=== PATIENT | male | born 1990 | race Caucasian/White ===

== ENCOUNTER 2020-05-06 19:41 | Emergency (ER) | payer MEDICAID, SELFPAY ==
[2020-05-06 19:41] VITALS: BP 156/104; PULSE 83; RESP 16; TEMP 36.1; O2SAT 97; BMI 34.2
--- NOTE | 2020-05-06 20:44 | ED.DCSUM_ITS ---
- ER Visit Summary Date of Service: 05/06/20 Chief Complaint: Eye redness History of Present Illness: The patient is a 29 M presenting with redness to both eyes. This started on Friday. He states he woke up with crusting in both eyes. He denies chemical exposure or foreign body. Denies grinding metal. He does not wear contacts or glasses. Denies fever. He went to urgent care on and started on polymyxin drops. He feels the symptoms have worsened since that time. He denies vision changes. Denies other complaints. Physical Examination: Vitals are stable. Patient is afebrile. Alert no acute distress. HEENT exam bilateral conjunctival injection, pupils equal round reactive to light. No pain with extraocular movements. Neck is supple. Lungs are clear and equal bilaterally. Heart is regular rate and rhythm. Extremities are unremarkable. Skin is warm and dry. No focal neurologic deficit. Remainder of exam is unremarkable. Emergency Department Course and Treatment: Visual acuity 20/30 OD, 20/25 OS. Patient is switched to erythromycin ophthalmic ointment. He will follow-up with Dr. Murphy. Advised return to the ED for worsening complaints. Disposition: Discharge home Impression: Conjunctivitis This note was generated with [employer] dictation software. It may contain incorrect words, spelling, and punctuation that were not noted in review of the chart prior to signing ED Disposition - Plan for ED Patient: Instructions: ED Conjunctivitis, Viral Referrals: Scott Murphy MD [STAFF PHYSICIAN] - Jacinto Lopez MD [Primary Care Provider] -
--- NOTE | 2020-05-06 20:44 | ED.DEP ---
ED Disposition - Plan for ED Patient: Instructions: ED Conjunctivitis, Viral Referrals: Jacinto Lopez MD [Primary Care Provider] - Scott Murphy MD [STAFF PHYSICIAN] -
[2020-05-06] MEDS: Erythromycin Base 1 OPTH.TUBE 1 APPLIC EACH EYE (20:59)
[2020-05-06 21:04] VITALS: RESP 18
== END 2020-05-06 21:05 | disposition home or self-care (01) ==
LOC: ED 20:35
PROVIDERS: Emergency Provider Emergency Medicine; PCP Family Medicine
DX: H10.9 Unspecified conjunctivitis (principal)
CPT/HCPCS: 99283

== ENCOUNTER 2021-05-01 15:22 | Emergency (ER) | payer MEDICAID, SELFPAY ==
[2021-05-01 15:23] VITALS: BP 150/89; PULSE 110; RESP 16; TEMP 36.3; O2SAT 95; BMI 35.4
--- NOTE | 2021-05-01 16:14 | RAD_ITS ---
STUDY: X-RAY - RIGHT SHOULDER REASON FOR EXAM: Male, 30 years old. FALL YESTERDAY, PAIN JUST OVER SCAPULAR AREA TECHNIQUE: For view(s) of the shoulder. COMPARISON: None. FINDINGS: Normal glenohumeral articulation. Normal acromioclavicular joint. Normal acromion. Normal humeral head and visualized proximal humerus. The soft tissue structures are unremarkable. There is no demonstrated fracture. Normal visualized pulmonary apex. RAD/Shoulder min 2 Views IMPRESSION: Normal x-ray examination of the shoulder. Electronically Signed: Russell Mensah MD at 17:06 EST ,
--- NOTE | 2021-05-01 16:14 | RAD_ITS ---
STUDY: X-RAY - UNILATERAL RIBS ( RIGHT ) WITH CHEST REASON FOR EXAM: Male, 30 years old. FALL YESTERDAY, PAIN JUST OVER SCAPULAR AREA TECHNIQUE - RIBS: 4 view(s) of the ribs. TECHNIQUE - CHEST: Single PA view of the chest. COMPARISON: None. FINDINGS - RIBS: Normal visualized ribs without a demonstrated fracture. FINDINGS - CHEST: The lungs are clear and expanded. There is no demonstrated pleural abnormality. Normal size heart. Normal mediastinum and conrad. Normal visualized pulmonary arteries. Normal visualized aortic arch and descending thoracic aorta. Normal visualized thoracic spine. Normal visualized ribs, clavicles, and shoulders. There is no demonstrated abnormality of the visualized soft tissue structures of the upper abdomen. RAD/Ribs Uni Min 3V w/PA Chest IMPRESSION: RIBS: Normal x-ray examination of the ribs. CHEST: Normal x-ray examination of the chest. Electronically Signed: Russell Mensah MD at 17:05 EST ,
--- NOTE | 2021-05-01 16:15 | EDS_ITS ---
HPI History of Present Illness Chief Complaint: Fall Detail of Chief Complaint: Fall with injury to right upper back and shoulder Informant: patient Narrative Narrative: Patient presents to the emergency department after sustaining a fall last evening around 10 PM. Patient states he slipped on the ice and fell onto his right side injuring his shoulder and upper back. Did not strike his head no loss of consciousness. He denies any shortness of breath. He denies neck pain. He denies abdominal pain. Patient is left-hand dominant. PFSH PFSH Medical History no medical history Home Medications polymyxin B sulf-trimethoprim 10 ml OP TID 05/06/20 [History Last Taken Unknown] Allergy/AdvReac Type Severity Reaction Status Date / Time No Known Allergies Allergy Verified 05/01/21 15:23 Surgical History no surgical history Social History Smoking Status: Never smoker ROS ROS ED Constitutional Constitutional ED: Reports systems reviewed and no addt'l complaints, except as documented; Denies body ache(s), change in weight or chills Eyes Eyes: Denies acute decrease in peripheral vision, change in vision, double vision or loss of vision ENT ENT ED: Reports none; Denies ear pain, lip swelling, loss taste/smell, neck pain, otalgia or sore throat Cardiovascular Cardiovascular: Reports none; Denies abdominal pain, chest pain with activity, leg edema, lightheadedness, palpitations, rapid heart rate or syncope Respiratory/Chest Respiratory/Chest: Reports none; Denies change in mental status, dry cough, dyspnea, hemoptysis, shortness of breath at rest or shortness of breath with exertion Gastrointestinal Gastrointestinal: Reports none; Denies abdominal pain, change in stool character, diarrhea, hematemesis, hematochezia, melena, rectal bleeding or vomi ting Genitourinary Genitourinary ED: Reports none; Denies abdominal discomfort, anuria, dysuria, genital pain or polyuria Musculoskeletal Musculoskeletal: Reports none and other Details: Right shoulder injury/back pain ; Denies arthralgias, back pain, difficulty walking, extremity pain, muscle weakness or myalgias Integumentary Reports none; Denies abscess or rash Neurologic Neurologic: Reports none; Denies abnormal gait, confusion, focal weakness, frequent falls, headache(s), loss of vision, numbness, paresthesias, radicular pain, vertigo or weakness Psychiatric Psychiatric: Reports systems reviewed and no addt'l complaints, except as documented and none; Denies behavioral changes, confusion, difficulty c oncentrating, hallucinations, suicidal ideation, tactile hallucinations or visual hallucinations Endocrine Endocrinology: Denies none, cold intolerance, excessive sweating, fatigue or heat intolerance Hematologic/Lymphatic Hematologic/Lymphatic: Reports none; Denies anemia, easy bleeding or easy bruising Allergic/Immunologic Allergic/Immunologic ED: Denies as per HPI, none, lip swelling, mouth swelling, throat swelling, tongue swelling or hives EXAM Physical Exam Const Vital Signs: 05/01/21 15:23 05/01/21 16:17 Temperature 97.3 F L Temperature Source Temporal Pulse Rate 110 H Respiratory Rate 16 Respiratory Effort Normal Non-Labored Blood Pressure 150/89 H Blood Pressure Mean 109 Pulse Ox 95 Oxygen Delivery Method Room Air Positive well nourished and well developed General Appearance ED: well developed and NAD HEENT Reports TM's clear and moist mucous membranes normocephalic and atraumatic; Negative for trauma or tenderness Tympanic Membrane ED: Yes TM's clear Eyes PERRL and EOMs intact bilaterally General Eye ED: Negative for pale conjunctiva or scleral icterus Neck no lymphadenopathy, supple and no JVD General: Negative for tenderness Chest Wall inspection of chest normal and palpation of chest normal Chest: Negative for tenderness Resp normal respiratory effort and clear to auscultation bilaterally Effort and Inspection: Negative for respiratory distress or pain with movement Auscultation: Negative for rhonchi, wheezes or diminished lung sounds Cardio regular rate, regular rhythm, S1 normal heart sound, S2 normal heart sound and no murmurs Peripheral Pulses: pulses 2+ throughout GI normal to inspection, nondistended, normoactive bowel sounds, soft to palpation, non-tender, non-distended and no masses Back/Spine no CVA tenderness and no thoracic nor lumbar tenderness Extremity Extremity Narrative: Evaluation of the right shoulder-patient has no obvious deformity or sulcus sign. He has normal range of motion and good strength the glenohumeral joint. Most of his pain is posterior aspect of the shoulder and upper ribs. Minimal discomfort over the scapula. He is neurovascular intact distally. General Extremety ED: Negative for edema General Extremity: Negative for edema Neuro oriented x3, CN's II-XII intact bilaterally, no sensory deficits noted and gait normal Sensorium / Orientation: awake, alert, oriented to person, oriented to place and oriented to time Motor Exam: strength 5/5 throughout and strength abnormal Psych mental status grossly normal Skin no rashes or lesions noted and no wounds MDM MDM MDM Narrative Medical decision making narrative: Patient x-rays of right shoulder and right ribs were unremarkable as interpreted by myself and the radiologist. At this point he does only thing for pain just wants Motrin or Tylenol for discomfort. Patient also would like the COVID-19 vaccine. Radiography Diagnostic Testing: Clinical Impression(s) from Imaging Studies Ribs w/Chest X-Ray 05/01/21 16:14 IMPRESSION: RIBS: Normal x-ray examination of the ribs. CHEST: Normal x-ray examination of the chest. Electronically Signed: Russell Mensah MD at 17:05 EST , Shoulder X-Ray 05/01/21 16:14 IMPRESSION: Normal x-ray examination of the shoulder. Electronically Signed: Russell Mensah MD at 17:06 EST , Discharge Plan Triage Chief Complaint: Fall ED Provider: Osiris Sanford Dx/Rx/DC Orders Clinical Impression: Fall, Contusion of right scapula, Back contusion Instructions: ED Back Contusion, ED Mechanical Fall Prescriptions: No Action polymyxin B sulf-trimethoprim 10 ML drops 10 ml OP TID RF: 0 Primary Care Provider: Care Physician,No Primary Referrals: Misha Jacobson MD [NON-STAFF] - 5-7 Days Care Physician,No Primary [Primary Care Provider] - Disposition Disposition: Home, Self Care
[2021-05-01] MEDS: COVID-19 VACC, MRNA(PFIZER)/PF 30 MCG/0.3 ML SYRINGE IM (18:23)
== END 2021-05-01 18:43 | disposition home or self-care (01) ==
PROVIDERS: Emergency Provider Emergency Medicine; Visit Provider Emergency Medicine
DX: S20.221A Contusion of right back wall of thorax, initial encounter (principal); W00.9XXA Unspecified fall due to ice and snow, initial encounter; Y93.9 Activity, unspecified; Y99.9 Unspecified external cause status; S40.011A Contusion of right shoulder, initial encounter; Y92.9 Unspecified place or not applicable; Z23 Encounter for immunization
CPT/HCPCS: 71101; 73030; 91300; 99282

== ENCOUNTER 2021-11-06 07:18 | Emergency (ER) | payer MEDICAID, SELFPAY ==
[2021-11-06 07:19] VITALS: BP 156/87; PULSE 122; RESP 22; TEMP 38.4; O2SAT 95; BMI 36.7
[2021-11-06 07:28] VITALS: O2SAT 98
--- NOTE | 2021-11-06 07:35 | EDS_ITS ---
HPI History of Present Illness Chief Complaint: Shortness of Breath Informant: patient Narrative Narrative: 31-year-old male presenting to the emergency department for the evaluation of fever. Patient states for the past 4 days he has had a fever. He was taking Tylenol and yesterday his grandparents gave him aspirin. He notes that he vomits with pop. No diarrhea sore throat or headache. He notes upper back/neck discomfort that is worse with movement. No rashes. No rhinorrhea or cough. PFSH PFSH Home Medications NK 11/06/21 [History Last Taken Unknown] Allergy/AdvReac Type Severity Reaction Status Date / Time No Known Allergies Allergy Verified 11/06/21 07:19 Social History (Updated 11/06/21 @ 07:[address] Alex Fraire, DO) Smoking Status: Never smoker substance use type: does not use ROS ROS ED Constitutional Constitutional ED: Reports chills and fever(s); Denies weight loss Eyes Eyes: Denies change in vision or diplopia ENT ENT ED: Denies ear pain, rhinorrhea or sore throat Cardiovascular Cardiovascular: Denies chest pain, orthopnea, palpitations or racing heartbeat Respiratory/Chest Respiratory/Chest: Denies cough, dyspnea or orthopnea Gastrointestinal Gastrointestinal: Denies abdominal pain, diarrhea, nausea or vomiting Genitourinary Genitourinary ED: Denies dysuria, hematuria or urinary frequency Musculoskeletal Musculoskeletal: Reports back pain and neck pain; Denies arthralgias or myalgias Integumentary Denies abscess or rash Neurologic Neurologic: Denies headache(s) or weakness Psychiatric Psychiatric: Denies anxiety, depression, suicidal ideation or suicidal thoughts Endocrine Endocrinology: Denies polydipsia, polyphagia or polyuria Allergic/Immunologic Allergic/Immunologic ED: Denies mouth swelling, tongue swelling or urticaria EXAM Physical Exam Const Vital Signs: 11/06/21 07:19 11/06/21 07:28 Temperature 101.1 F H Temperature Source Temporal Pulse Rate 122 H Respiratory Rate 22 H Respiratory Effort Normal Non-Labored Respiratory Depth Normal Respiratory Pattern Normal Blood Pressure 156/87 H Blood Pressure Mean 110 Pulse Ox 95 Oxygen Delivery Method Room Air Room Air Positive well nourished, well developed and obese General Appearance ED: well developed Nutritional Appearance: obese HEENT Reports normocephalic, head/scalp atraumatic and moist mucous membranes Eyes PERRL and EOMs intact bilaterally Neck no lymphadenopathy, supple and no JVD Resp normal respiratory effort and clear to auscultation bilaterally Cardio regular rate, regular rhythm and no murmurs Rate: tachycardic GI normal to inspection, nondistended, normoactive bowel sounds and non-tender Palpation: soft Back/Spine no CVA tenderness and normal ROM Extremity normal to inspection General Extremety ED: Negative for edema General Extremity: Negative for edema Neuro oriented x3 and CN's II-XII intact bilaterally Sensorium / Orientation: alert Motor Exam: strength 5/5 throughout Psych mental status grossly normal Mood & Affect: Negative for depressed or tearful Skin no rashes or lesions noted and no wounds MDM MDM MDM Narrative Medical decision making narrative: Received Motrin and his fever broke. White count 7.2. Creatinine 1.31. glucose of 141. My interpretation of the chest x-ray is no acute process. COVID swab was negative. Patient clinically appears well. His biggest complaint is continued fever. I think the patient most likely has a viral syndrome given the 4 days of the illness and really no other specific complaints. At this point he has isolated paraspinal musculature tenderness in the upper back cervical region. I do not suspect underlying infection. He is got no meningeal signs. He has no headache. At this point patient will be discharged home recommend isolation until fever has have resolved. Return if worsening or any concerns Lab Data Attestation: I reviewed the patient's lab results. Labs: Laboratory Results - last 24 hr 11/06/21 11/06/21 07:39 07:39 WBC 7.2 RBC 6.07 Hgb 15.4 Hct 47.6 MCV 78.4 L MCH 25.4 L MCHC 32.4 RDW Std Deviation 42.2 RDW Coeff of Alexus 15.2 H Plt Count 212 MPV 9.7 Immature Gran % (Auto) 0.400 Neut % (Auto) 53.6 Lymph % (Auto) 33.1 [place] % (Auto) 10.1 H Eos % (Auto) 2.0 Baso % (Auto) 0.8 Absolute Neuts (auto) 3.8 Absolute Lymphs (auto) 2.37 Nucleated RBC % 0 Atypical Lymphocytes 1+ Sodium 136 Potassium 4.3 Chloride 102 Carbon Dioxide 28.0 Anion Gap 6 BUN 12 Creatinine 1.31 H Estim Creat Clear Calc 82.45 Est GFR (MDRD) Af Amer 83 Est GFR (MDRD) Non-Af 68 BUN/Creatinine Ratio 9.2 L Glucose 141 H Calcium 8.4 L Total Bilirubin 0.50 AST 24 ALT 39 Alkaline Phosphatase 66 Total Protein 7.5 Albumin 3.5 Globulin 4.0 Albumin/Globulin Ratio 0.9 Radiography Diagnostic Testing: Clinical Impression(s) from Imaging Studies Chest X-Ray 11/06/21 07:50 IMPRESSION: Normal x-ray examination of the chest. Electronically Signed: Mauro Sidhu MD at 8:18 EDT , Discharge Plan Triage Chief Complaint: Shortness of Breath ED Provider: Alex Fraire Dx/Rx/DC Orders Clinical Impression: Acute viral syndrome, Fever Instructions: ED Viral Syndrome (Adult) Prescriptions: No Action NK Primary Care Provider: Care Physician,No Primary Referrals: Corbin Leal MD [Med Staff - Active Staff] - As Needed Care Physician,No Primary [Primary Care Provider] - Disposition Disposition: Home, Self Care
[2021-11-06] MEDS: Ibuprofen 400 MG Tablet 800 MG PO (07:41)
[2021-11-06 07:46] LABS: Absolute Lymphocyte Count 2.37 X10^3/uL (0.83-4.51); Absolute Neutrophil Count 3.8 X10^3/uL (2.0-7.7); Basophil# 0.06 X10^3/uL; Basophil% 0.8 % (0-1); Eosinophil# 0.14 X10^3/uL; Hematocrit 47.6 % (40-54); Hemoglobin 15.4 g/dL (13.0-16.5); Lymphocyte # 2.37 X10^3/ul (0.83-4.51); Lymphocyte % 33.1 % (19-41); Mean Corp Hgb Conc 32.4 g/dL (32-36); Mean Corpuscular Hgb 25.4 pg (27.0-32.0); Mean Corpuscular Volume 78.4 fL (80-94); Mean Platelet Vol. 9.7 fl (6.2-12.0); Monocyte# 0.72 X10^3/uL; Monocyte% 10.1 % (0-10); NRBC Flagged by Analyzer 0 % (0-5); Neutrophil # 3.83 X10^3/uL (2.7-7.7); Neutrophil % 53.6 % (47-70); POSITIVE MORPHOLOGY YES; Platelet Count 212 K/mm3 (150-450); RBC Distribution Width CV 15.2 % (11.6-14.6); RBC Distribution Width SD 42.2 fl (35.1-43.9); Red Blood Count 6.07 M/mm3 (4.6-6.2); White Blood Count 7.2 K/mm3 (4.4-11.0)
[2021-11-06 07:47] LABS: Differential Indicated SCAN CRITERIA MET
--- NOTE | 2021-11-06 07:50 | RAD_ITS ---
STUDY: X-RAY CHEST REASON FOR EXAM: Male, 31 years old. Dyspnea and fever TECHNIQUE: Single AP portable view of the chest. COMPARISON: None. FINDINGS: The lungs are clear and expanded. There is no demonstrated pleural abnormality. Normal size heart. Normal mediastinum and conrad. Normal visualized pulmonary arteries. Normal visualized aortic arch and descending thoracic aorta. Normal visualized thoracic spine. Normal visualized ribs, clavicles, and shoulders. There is no demonstrated abnormality of the visualized soft tissue structures of the upper abdomen. RAD/Chest 1 View (Portable) IMPRESSION: Normal x-ray examination of the chest. Electronically Signed: Mauro Sidhu MD at 8:18 EDT ,
[2021-11-06 08:02] LABS: ALB/GLOB Ratio 0.9 RATIO (0.9-2.4); AST(SGOT) 24 U/L (15-37); Alanine Aminotransfer ALT/SGPT 39 U/L (16-61); Albumin, Serum 3.5 g/dL (3.2-5.0); Alkaline Phosphatase 66 U/L (45-117); Anion Gap 6 (5-15); BUN 12 mg/dL (7-18); BUN/Creat Ratio 9.2 RATIO (10-20); Calcium,Total 8.4 mg/dL (8.5-10.1); Chloride 102 mmol/L (98-107); Creatinine, Serum 1.31 mg/dL (0.70-1.30); EST Glomerular Filtration Rate 68 mL/min (>60); Est Glom Filt Rate - Afr Amer 83 mL/min (>60); Estimated Creatinine Clearance 82.45 ml/min; Glucose 141 mg/dL (74-106); Potassium 4.3 mmol/L (3.5-5.1); Protein, Total 7.5 g/dL (6.4-8.2); Sodium Level 136 mmol/L (136-145)
[2021-11-06 08:11] LABS: Atypical Lymphocyte 1+ %
[2021-11-06 08:55] VITALS: BP 126/74; PULSE 72; RESP 15; O2SAT 98
== END 2021-11-06 08:56 | disposition home or self-care (01) ==
PROVIDERS: Emergency Provider Emergency Medicine; Visit Provider Emergency Medicine
DX: R06.02 Shortness of breath (principal); B34.9 Viral infection, unspecified; E66.9 Obesity, unspecified; R50.9 Fever, unspecified; Z20.822 Contact with and (suspected) exposure to COVID-19
CPT/HCPCS: 71045; 80053; 85025; 87811; 99283; A4216

== ENCOUNTER 2022-01-14 07:48 | Emergency (ER) | payer MEDICAID, SELFPAY ==
[2022-01-14] VITALS (7 sets, daily range): BP systolic 108–149; BP diastolic 51–98; PULSE 59–80; RESP 15–18; TEMP 36.2; O2SAT 97–100; BMI 35.4
--- NOTE | 2022-01-14 08:03 | CT_ITS ---
STUDY: CTA HEAD AND NECK WITH CONTRAST REASON FOR EXAM: Male, 31 years old. Headache, left sided paresthesias RADIATION DOSAGE (If Supplied By Facility): CTDIvol = ( 33.12 ) mGy, DLP = ( 1565.82 ) mGycm TECHNIQUE: CT angiography was performed with a multi-detector CT scanner. Data acquisition was obtained from the skull base through the vertex following intravenous administration of IV 100mL [id number]-[id number]. MIP images were reconstructed from the axial data set. Post-processing of the angiographic images was performed, with multiplanar reformation and 3D reconstruction. Individualized dose optimization techniques were used for this CT. COMPARISON: No relevant priors. FINDINGS: Normal bilateral petrous carotid arteries. Normal right cavernous carotid artery with a normal supraclinoid bifurcation. Normal left cavernous carotid artery with a normal supraclinoid bifurcation. Normal right A1 segments of the anterior cerebral artery. Normal left A1 segments of the anterior cerebral artery. Normal intact anterior communicating artery (ACOM). Normal bilateral A2 segments of the anterior cerebral arteries. Normal right M1 and M2 segments of the middle cerebral arteries, with a normal M1 bifurcation. Normal left M1 and M2 segments of the middle cerebral arteries, with a normal M1 bifurcation. Normal right posterior communicating artery (PCOM). Normal left posterior communicating artery (PCOM). Normal bilateral vertebral arteries. Normal basilar artery with a normal basilar bifurcation. The visualized bilateral superior cerebellar (SCA) arteries are normal. Normal bilateral P1, P2 and visualized P3 segments of the posterior cerebral arteries. There is no demonstrated aneurysm of the [place]. There is no demonstrated abnormality of the visualized brain. AORTIC ARCH: Normal visualized aortic arch. Normal origins of the brachiocephalic, left common carotid, and left subclavian arteries. RIGHT CAROTID ARTERIES: Normal right common carotid artery (CCA). Normal right common carotid bulb. Normal origin of the right internal carotid (ICA) artery without a hemodynamically significant stenosis. Normal visualized cervical portion of the right internal carotid artery. Normal origin of the right external carotid artery (ECA). LEFT CAROTID ARTERIES: Normal left common carotid artery (CCA). Normal left common carotid bulb. Normal origin of the left internal carotid (ICA) artery without a hemodynamically significant stenosis. Normal visualized cervical portion of the left internal carotid artery. Normal origin of the left external carotid artery (ECA). VERTEBRAL ARTERIES: Normal bilateral vertebral arteries. CT/CTA Head AND Neck W/ Contrast IMPRESSION: Normal CTA Head and neck with contrast. Electronically Signed: Mauro Sidhu MD at 9:13 EDT ,
--- NOTE | 2022-01-14 08:05 | EX.ED.VIS.HA ---
HPI <Dr. Stan Brown MD - Last Filed: 01/17/22 09:26> History of Present Illness Chief Complaint: Headache Informant: patient Onset/Context/Timing Onset: Hours (5) Context: Activity (Awoke him from sleep) Timing: Continuous Quality -Headache: Positive for Throbbing Location: Right retro-orbital/frontal Current Severity: Moderate Maximum Severity: Moderate Worsened by: Light Relieved by: Nothing but no treatments taken Associated Symptoms/Injury Associated Symptoms: Positive for Nausea, Vomiting, Numbness (LUE and LLE, 15-20 min then resolved) and Photophobia; Negative for Fever, Sore Throat, Visual Changes or Blurred Vision Narrative Narrative: Woke up with his headache, then 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 Does not usually get headaches. When he woke up with this, he also had numbness in his left arm and leg, that resolved after about 15 or 20 minutes. He states since then, he has had off-and-on mild numbness in his left leg but nowhere else. No problems walking or talking. No recent head injury. No recent illness. Does not have a history of migraines. No recent [id number] medications does not use drugs does not take any prescriptions for any reason. PFSH <Dr. Stan Brown MD - Last Filed: 01/17/22 09:26> [facility] Medical History no medical history no medical history Home Medications NK 11/06/21 [History Last Taken Unknown] Allergy/AdvReac Type Severity Reaction Status Date / Time No Known Allergies Allergy Verified 01/14/22 07:51 Surgical History no surgical history no surgical history Social History Smoking Status: Never smoker substance use type: does not use ROS <Dr. Stan Brown MD - Last Filed: 01/17/22 09:26> ROS ED Constitutional Constitutional ED: Denies chills or fever(s) Eyes Eyes: Denies blurry vision, change in vision or diplopia ENT ENT ED: Denies ear pain or sore throat Cardiovascular Cardiovascular: Denies chest pain or palpitations Respiratory/Chest Respiratory/Chest: Denies cough or dyspnea Gastrointestinal Gastrointestinal: Reports nausea and vomiting; Denies abdominal pain or diarrhea Genitourinary Genitourinary ED: Denies dysuria or urinary frequency Musculoskeletal Musculoskeletal: Denies back pain or myalgias Integumentary Denies abscess or rash Neurologic Neurologic: Reports headache(s) and paresthesias; Denies weakness EXAM <Dr. Stan Brown MD - Last Filed: 01/17/22 09:26> Physical Exam Const Vital Signs: 01/14/22 07:49 01/14/22 09:48 01/14/22 11:00 Temperature 97.1 F L Temperature Source Temporal Pulse Rate 80 63 63 Respiratory Rate 16 15 Blood Pressure 149/98 H 119/80 119/82 H Blood Pressure Mean 115 93 94 Pulse Ox 97 99 Oxygen Delivery Method Room Air Room Air 01/14/22 13:00 01/14/22 14:00 01/14/22 15:00 Temperature Temperature Source Pulse Rate 80 74 60 Respiratory Rate 18 18 17 Blood Pressure 117/59 L 122/59 H 108/51 L Blood Pressure Mean 78 80 70 Pulse Ox 99 99 100 Oxygen Delivery Method Room Air Room Air Room Air 01/14/22 16:00 Temperature Temperature Source Pulse Rate 59 L Respiratory Rate 18 Blood Pressure 122/66 H Blood Pressure Mean 84 Pulse Ox 100 Oxygen Delivery Method Room Air Positive well nourished and well developed General Appearance ED: well developed and NAD HEENT Reports normocephalic and moist mucous membranes HEENT Narrative: No facial droop or rash or swelling atraumatic Eyes PERRL, EOMs intact bilaterally and conjunctivae normal Eyes Narrative: Mild photophobia Neck no lymphadenopathy, supple and no meningeal signs Resp normal respiratory effort and clear to auscultation bilaterally Cardio regular rate, regular rhythm and no murmurs Rate: Negative for tachycardic GI non-tender and non-distended Palpation: soft Extremity normal to inspection and full ROM Neuro oriented x3 and CN's II-XII intact bilaterally Sensorium / Orientation: awake and alert Speech: speech normal Gait (Neuro): normal gait Motor Exam: strength 5/5 throughout Psych mental status grossly normal Skin Lesions: no lesions Rashes: no rashes NIHSS NIHSS Initial: 1a Level of Consciousness: 0 1b LOC Questions (Score 2 if aphasic/stupor): 0 1c LOC Commands (Only score 1st attempt): 0 2 Best Gaze (If aphasic, use reflexive mvmts.): 0 3 Visual: 0 4 Facial Palsy: 0 5 Motor Arm Right (UN = amputation/fusion): 0 5 Motor Arm Left: 0 6 Motor Leg Right: 0 6 Motor Leg Left: 0 7 Limb ataxia (Only + if out of proportion): 0 8 Sensory (Aphasia/stupor=0 or 1, coma=2): 0 9 Best Language: 0 10 Dysarthria (mute, coma=2, intubated=UN): 0 11 Extinction and Inattention (only scored if +): 0 Total Score: 0 <Dr. Sunil Woodall DO - Last Filed: 01/14/22 19:59> Physical Exam Const Vital Signs: 01/14/22 07:49 01/14/22 09:48 01/14/22 11:00 Temperature 97.1 F L Temperature Source Temporal Pulse Rate 80 63 63 Respiratory Rate 16 15 Blood Pressure 149/98 H 119/80 119/82 H Blood Pressure Mean 115 93 94 Pulse Ox 97 99 Oxygen Delivery Method Room Air Room Air 01/14/22 13:00 01/14/22 14:00 01/14/22 15:00 Temperature Temperature Source Pulse Rate 80 74 60 Respiratory Rate 18 18 17 Blood Pressure 117/59 L 122/59 H 108/51 L Blood Pressure Mean 78 80 70 Pulse Ox 99 99 100 Oxygen Delivery Method Room Air Room Air Room Air 01/14/22 16:00 Temperature Temperature Source Pulse Rate 59 L Respiratory Rate 18 Blood Pressure 122/66 H Blood Pressure Mean 84 Pulse Ox 100 Oxygen Delivery Method Room Air NIHSS NIHSS Initial: Total Score: 0 MDM <Dr. Stan Brown MD - Last Filed: 01/17/22 09:26> [facility] Narrative Medical decision making narrative: CT/CTA head and neck negative/normal. Labs normal. Patient was given Reglan, his symptoms are completely resolved. I suspect this is a migraine, but because of the neurologic symptoms and the fact that he has never had these symptoms in the past or migraines, I consulted [facility] neurology. They recommend getting an MRI since it is the first time, in agreement with me. They recommend an MRI with and without contrast of the brain. If it is negative they are comfortable with the patient going home, otherwise disposition accordingly. I called MRI to see if they could fit him in, and they would not be able to until later this evening, approximately 7 hours after I ordered the scan. I discussed with the patient. He is comfortable waiting until this can occur so that he can avoid an admission if it is negative. This is reasonable, he will be checked out to the oncoming doctor at shift change. Lab Data Attestation: I reviewed the patient's lab results. Labs: Laboratory Results - last 24 hr 01/14/22 01/14/22 08:05 08:05 WBC 5.6 RBC 6.11 Hgb 16.2 Hct 48.7 MCV 79.7 L MCH 26.5 L MCHC 33.3 RDW Std Deviation 39.5 RDW Coeff of Alexus 13.7 Plt Count 227 MPV 9.4 Immature Gran % (Auto) 0.200 Neut % (Auto) 59.1 Lymph % (Auto) 29.1 [place] % (Auto) 8.4 Eos % (Auto) 2.7 Baso % (Auto) 0.5 Absolute Neuts (auto) 3.3 Absolute Lymphs (auto) 1.62 Nucleated RBC % 0 Sodium 141 Potassium 3.9 Chloride 103 Carbon Dioxide 31.0 Anion Gap 7 BUN 12 Creatinine 0.90 Estim Creat Clear Calc 120.02 Est GFR (MDRD) Af Amer 127 Est GFR (MDRD) Non-Af 105 BUN/Creatinine Ratio 13.3 Glucose 102 Calcium 8.6 Radiography Diagnostic Testing: Clinical Impression(s) from Imaging Studies Head/Neck CTA 01/14/22 08:03 IMPRESSION: Normal CTA Head and neck with contrast. Electronically Signed: Mauro Sidhu MD at 9:13 EDT , Brain MRI 01/14/22 17:45 IMPRESSION: Normal unenhanced and enhanced MRI of the brain. Electronically Signed: Talia Araiza MD at 19:42 EDT Reading Location ID and State: [id number] / Tel , Service support , <Dr. Sunil Woodall, DO - Last Filed: 01/14/22 19:59> [facility] Lab Data Labs: Laboratory Results - last 24 hr 01/14/22 01/14/22 08:05 08:05 WBC 5.6 RBC 6.11 Hgb 16.2 Hct 48.7 MCV 79.7 L MCH 26.5 L MCHC 33.3 RDW Std Deviation 39.5 RDW Coeff of Alexus 13.7 Plt Count 227 MPV 9.4 Immature Gran % (Auto) 0.200 Neut % (Auto) 59.1 Lymph % (Auto) 29.1 [place] % (Auto) 8.4 Eos % (Auto) 2.7 Baso % (Auto) 0.5 Absolute Neuts (auto) 3.3 Absolute Lymphs (auto) 1.62 Nucleated RBC % 0 Sodium 141 Potassium 3.9 Chloride 103 Carbon Dioxide 31.0 Anion Gap 7 BUN 12 Creatinine 0.90 Estim Creat Clear Calc 120.02 Est GFR (MDRD) Af Amer 127 Est GFR (MDRD) Non-Af 105 BUN/Creatinine Ratio 13.3 Glucose 102 Calcium 8.6 Radiography Diagnostic Testing: Clinical Impression(s) from Imaging Studies Head/Neck CTA 01/14/22 08:03 IMPRESSION: Normal CTA Head and neck with contrast. Electronically Signed: Mauro Sidhu MD at 9:13 EDT , Brain MRI 01/14/22 17:45 IMPRESSION: Normal unenhanced and enhanced MRI of the brain. Electronically Signed: Talia Araiza MD at 19:42 EDT Reading Location ID and State: [id number] / Tel , Service support , Treatment and Re-Evaluation Narrative: Care of the patient was turned over to me pending MRI results. MRI was obtained and was negative. This was interpreted by the radiologist and reviewed by myself. Patient was advised of his findings. Patient was instructed to follow-up with his primary care physician. Patient understood and was agreeable with the plan. All questions were answered. Discharge Plan Triage Chief Complaint: Headache ED Provider: Stan Brown Dx/Rx/DC Orders Clinical Impression: Cephalgia, Paresthesia of left upper and lower extremity Instructions: ED, Migraine (Classical), ED Paraesthesias Prescriptions: No Action NK Primary Care Provider: Care Physician,No Primary Referrals: Corbin Leal MD [Med Staff - Active Staff] - As soon as possible Disposition Disposition: Home, Self Care Discharge Date/Time: 01/14/22 20:00
[2022-01-14] MEDS: Metoclopramide 10 MG/2 ML Vial 5 MG IV (08:10)
[2022-01-14] MEDS: 0.9% Normal Saline 1,000 ML 999 ML IV (08:11)
[2022-01-14 08:22] LABS: Absolute Lymphocyte Count 1.62 X10^3/uL (0.83-4.51); Absolute Neutrophil Count 3.3 X10^3/uL (2.0-7.7); Basophil# 0.03 X10^3/uL; Basophil% 0.5 % (0-1); Eosinophil# 0.15 X10^3/uL; Eosinophils% 2.7 % (0-5); Hematocrit 48.7 % (40-54); Hemoglobin 16.2 g/dL (13.0-16.5); Lymphocyte # 1.62 X10^3/ul (0.83-4.51); Lymphocyte % 29.1 % (19-41); Mean Corp Hgb Conc 33.3 g/dL (32-36); Mean Corpuscular Hgb 26.5 pg (27.0-32.0); Mean Corpuscular Volume 79.7 fL (80-94); Mean Platelet Vol. 9.4 fl (6.2-12.0); Monocyte# 0.47 X10^3/uL; Monocyte% 8.4 % (0-10); NRBC Flagged by Analyzer 0 % (0-5); Neutrophil # 3.29 X10^3/uL (2.7-7.7); Neutrophil % 59.1 % (47-70); Platelet Count 227 K/mm3 (150-450); RBC Distribution Width CV 13.7 % (11.6-14.6); RBC Distribution Width SD 39.5 fl (35.1-43.9); Red Blood Count 6.11 M/mm3 (4.6-6.2); White Blood Count 5.6 K/mm3 (4.4-11.0)
[2022-01-14 08:30] LABS: Anion Gap 7 (5-15); BUN 12 mg/dL (7-18); BUN/Creat Ratio 13.3 RATIO (10-20); Calcium,Total 8.6 mg/dL (8.5-10.1); Chloride 103 mmol/L (98-107); EST Glomerular Filtration Rate 105 mL/min (>60); Est Glom Filt Rate - Afr Amer 127 mL/min (>60); Estimated Creatinine Clearance 120.02 ml/min; Glucose 102 mg/dL (74-106); Potassium 3.9 mmol/L (3.5-5.1); Sodium Level 141 mmol/L (136-145)
--- NOTE | 2022-01-14 09:21 | TELEMED_ITS ---
[facility] Tele[facility] has confirmed receipt of a request for visit. This document confirms receipt of the order initiating the consult. To find the results of the consultation, please view the patient's reports for the scanned Telemed Consult.
--- NOTE | 2022-01-14 09:47 | ED.RN ---
Telemedicine Doc. on video
--- NOTE | 2022-01-14 13:03 | CM.ED ---
SW Note Referral Source: Case Find Referral Reason: No Primary Care Physician (PCP) SW reviewed chart and noted that patient has no PCP. SW provided patient with list of [facility] Physician List for reference. SW also provided patient with handout ?Where to go When?. No other issues or concerns voiced at this time. SW remains available for any additional needs. Plan: Provided patient with PCP information Velma MARTINS
--- NOTE | 2022-01-14 17:45 | MRI_ITS ---
STUDY: MRI BRAIN WITH AND WITHOUT CONTRAST REASON FOR EXAM: Male, 31 years old. new headache and left sided paresthesias TECHNIQUE: Standardized multiplanar fat and water weighted pulse sequences were obtained. IV 20CC CLARISCAN was administered for the contrast portion of the examination. COMPARISON: None. FINDINGS: No intracranial mass, mass effect or midline shift. No enhancement following the administration of contrast. No hemorrhage, territorial infarct or acute ischemia. Normal size of the ventricles and extra-axial spaces for the patient''s age. Normal white matter tracts of the supratentorial brain. Normal bilateral basal ganglia. Normal thalami. There is no extra-axial fluid accumulation. Normal flow voids within the major intracranial circulation suggesting patency by spin echo criteria. There is no enhancing intra-axial or extra-axial abnormality. Pituitary gland is normal in height. Normal midbrain, radha and medulla. Normal cerebellum. Normal basal cisterns. Normal bilateral temporal bones. Normal bilateral internal auditory canals. Normal visualized paranasal sinuses. Normal calvarium and skull base. Normal visualized soft tissue structures. MRI/Brain W/WO Contrast IMPRESSION: Normal unenhanced and enhanced MRI of the brain. Electronically Signed: Talia Araiza MD at 19:42 EDT Reading Location ID and State: [id number] / Tel , Service support ,
== END 2022-01-14 20:00 | disposition home or self-care (01) ==
PROVIDERS: Emergency Provider Emergency Medicine; Visit Provider Emergency Medicine
DX: R51.9 Headache, unspecified (principal); R11.2 Nausea with vomiting, unspecified; R20.2 Paresthesia of skin
CPT/HCPCS: 70496; 70498; 70553; 80048; 85025; 96361; 96374; 99283; A9575; J7030; Q9967; A4216

== ENCOUNTER 2022-01-22 06:35 | Emergency (ER) | payer MEDICAID, SELFPAY ==
[2022-01-22 06:36] VITALS: BP 142/95; PULSE 61; RESP 16; TEMP 36.6; O2SAT 98; BMI 36.2
[2022-01-22] MEDS: 0.9% Normal Saline 1,000 ML 999 ML IV (06:55)
--- NOTE | 2022-01-22 06:56 | EX.ED.DYSGE1 ---
HPI History of Present Illness Chief Complaint: Headache Narrative Narrative: Patient is a 31-year-old male who reports that over the past 2 days he has been waking up with headache. He states there was no trauma prior to the headache beginning and that he has not had any sick symptoms such as congestion drainage cough or fever. He states that he does use caffeine and has continued to do so. He does report however that he recently stopped nicotine which is a new change to his daily activities. He states has been trying [id number] medication but has not had much improvement with his headache and secondary to this comes in for evaluation. He does report he is and kids at home and none of them have headache symptoms which goes against a carbon monoxide exposure. PFSH PFSH Medical History no medical history Home Medications NK 11/06/21 [History Last Taken Unknown] Allergy/AdvReac Type Severity Reaction Status Date / Time No Known Allergies Allergy Verified 01/22/22 06:39 Surgical History no surgical history Social History Smoking Status: Never smoker substance use type: does not use ROS ROS ED Constitutional Constitutional ED: Denies chills or fever(s) Eyes Eyes: Reports other Details: Positive photophobia ENT ENT ED: Denies rhinorrhea or sore throat Cardiovascular Cardiovascular: Denies chest pain Respiratory/Chest Respiratory/Chest: Denies cough or dyspnea Gastrointestinal Gastrointestinal: Denies abdominal pain, diarrhea, nausea or vomiting Genitourinary Genitourinary ED: Denies dysuria Musculoskeletal Musculoskeletal: Denies myalgias or neck pain Integumentary Denies rash Neurologic Neurologic: Reports headache(s); Denies paresthesias or weakness Hematologic/Lymphatic Hematologic/Lymphatic: Denies easy bleeding or easy bruising EXAM Physical Exam Const Vital Signs: 01/22/22 06:36 Temperature 97.8 F Temperature Source Temporal Pulse Rate 61 Respiratory Rate 16 Blood Pressure 142/95 H Blood Pressure Mean 110 Pulse Ox 98 Oxygen Delivery Method Room Air Positive well nourished and well developed General Appearance ED: well developed HEENT Reports moist mucous membranes Eyes PERRL and EOMs intact bilaterally Eyes Narrative: No pale macula or blood and thunder appearance in the retina. No obvious papilledema changes noted. Neck supple Neck Narrative: No meningeal signs Resp normal respiratory effort and clear to auscultation bilaterally Cardio regular rate and regular rhythm Extremity normal to inspection Neuro oriented x3, CN's II-XII intact bilaterally and no sensory deficits noted Neuro Narrative: Cranial nerves II through XII are grossly intact. There are no focal neurologic deficits. No pronator drift. No dysmetria. No truncal ataxia. NIH stroke scale score of 0 Sensorium / Orientation: alert Psych mental status grossly normal Skin no rashes or lesions noted MDM MDM MDM Narrative Medical decision making narrative: Patient presented to the ER slightly hypertensive otherwise with stable vitals. He denied any recent trauma and has no signs of injury on exam. He is afebrile without significant nasal congestion or sinus pressure and he denies any known sick contacts. There are also multiple other people at home and none of them are having symptoms going against carbon oxide exposure. The patient was seen in the ER on January 14 and had blood work which was normal and a CTA and MRI of his brain both revealing no acute finding. Therefore at this time as his neuro exam is normal he has had a recent CT and MRIs revealing no structural abnormalities he has no signs of infection such as meningitis I do not feel there is need for further work-up. Patient will be given IV fluids Toradol Benadryl and Reglan. I do feel a large cause of this recurrent headache is most likely related to nicotine withdrawal. Patient will be reevaluated after medication to ensure neuro exam remains normal and headache is reducing and if this remains so he is safe for discharge. Discharge Plan Triage Chief Complaint: Headache ED Provider: Jf Pino Dx/Rx/DC Orders Clinical Impression: Cephalgia, Nicotine withdrawal Instructions: ED Headache Unspecified Prescriptions: No Action NK Primary Care Provider: Care Physician,No Primary Referrals: Savi Madera DO [Med Staff - Active Staff] - Care Physician,No Primary [Primary Care Provider] - Disposition Disposition: Home, Self Care
[2022-01-22] MEDS: DiphenhydrAMINE 50 MG/ML Syringe IV (07:01)
[2022-01-22] MEDS: Metoclopramide 10 MG/2 ML Vial IV (07:01)
[2022-01-22] MEDS: Ketorolac 30 MG/ML Syringe IV (07:01)
[2022-01-22 08:24] VITALS: BP 134/69; PULSE 81; RESP 16; O2SAT 97
== END 2022-01-22 08:26 | disposition home or self-care (01) ==
PROVIDERS: Emergency Provider Emergency Medicine; Visit Provider Emergency Medicine
DX: R51.9 Headache, unspecified (principal); F17.203 Nicotine dependence unspecified, with withdrawal
CPT/HCPCS: 96361; 96374; 96375; 99283; J7030; A4216

== ENCOUNTER 2022-01-28 04:55 | Emergency (ER) | payer MEDICAID, SELFPAY ==
[2022-01-28 04:55] VITALS: BP 156/94; PULSE 77; RESP 18; TEMP 35.9; O2SAT 98; BMI 36.7
--- NOTE | 2022-01-28 05:32 | EDS_ITS ---
HPI History of Present Illness Chief Complaint: Headache Narrative Narrative: Patient is a 31-year-old male who was seen on January 14 secondary to strokelike symptoms. He underwent a CTA and MRI which revealed no structural findings mainly no stenosis or large vessel occlusion. Patient was then seen roughly a week later secondary to headache. At that time he reported he had stopped nicotine after his previous evaluation. It was felt that his recurrent headache was most likely related to nicotine withdrawal and he was given a migraine cocktail and his headache resolved and he was discharged home. Patient states he has been doing well since that time but then awoke this morning with headache once again. He states no one else at home has the headache and he denies any trauma. With the headache this time around he is having left arm weakness and numbness and slurred speech and is slow to respond. Family was concerned about a possible stroke so he presents for repeat evaluation. Patient denies any illicit drug use or past history of headaches. PFSH PFSH Medical History no medical history Home Medications NK 11/06/21 [History Last Taken Unknown] Allergy/AdvReac Type Severity Reaction Status Date / Time No Known Allergies Allergy Verified 01/28/22 04:59 Surgical History no surgical history Social History Smoking Status: Never smoker substance use type: does not use ROS ROS ED Constitutional Constitutional ED: Denies chills or fever(s) Eyes Eyes: Reports other Details: Positive photophobia ENT ENT ED: Reports rhinorrhea; Denies sore throat Cardiovascular Cardiovascular: Denies chest pain Respiratory/Chest Respiratory/Chest: Reports cough; Denies dyspnea Gastrointestinal Gastrointestinal: Reports nausea and vomiting; Denies abdominal pain or diarrhea Genitourinary Genitourinary ED: Denies dysuria Musculoskeletal Musculoskeletal: Denies myalgias Integumentary Denies rash Neurologic Neurologic: Reports headache(s), paresthesias and weakness Hematologic/Lymphatic Hematologic/Lymphatic: Denies easy bleeding or easy bruising EXAM Physical Exam Const Vital Signs: 01/28/22 04:55 Temperature 96.7 F L Temperature Source Temporal Pulse Rate 77 Respiratory Rate 18 Blood Pressure 156/94 H Blood Pressure Mean 114 Pulse Ox 98 Oxygen Delivery Method Room Air Positive well nourished and well developed General Appearance ED: well developed HEENT Reports moist mucous membranes HEENT Narrative: Cobblestoning the posterior pharynx consistent with sinus drainage without air way edema or compromise Eyes PERRL and EOMs intact bilaterally Neck supple Neck Narrative: No meningeal signs Resp normal respiratory effort and clear to auscultation bilaterally Cardio regular rate and regular rhythm Rate: other Other Details: Radial pulses are +2-4 bilaterally are equal and symmetric GI normal to inspection, nondistended, normoactive bowel sounds, non-tender and non-distended GI Narrative: No voluntary guarding or rigidity no pulsatile mass Auscultation: normoactive bowel sounds Palpation: soft Extremity normal to inspection Neuro oriented x3 Neuro Narrative: Patient is awake and alert to person place and time. He does have mild dysarthria he also has decreased sensation of the left hand. There is no truncal ataxia. No asymmetric weakness of the arms or legs. NIH stroke scale score of 2. Sensorium / Orientation: alert Psych Psych Narrative: Patient has a flat affect Skin no rashes or lesions noted MDM MDM MDM Narrative Medical decision making narrative: Patient presented to the ER hypertensive but otherwise with stable vitals. He reported he awoke again with a headache today and was having neurologic symptoms such as slurred speech weakness and paresthesias. As he recently underwent a CTA and MRI with and without contrast which showed no strokelike changes or structural abnormalities I do not feel there is a need to activate a stroke alert especially as he woke up with the symptoms and would be outside any stroke window. The patient was in the ER would have fluctuating symptoms. He came in initially with the slurred speech and weakness then progressed to paresthesias he then had resolution of this and NIH returned to 0. However about 5 minutes later patient then began acting altered and confused and he took off his clothes and laid on the ground and would not speak. At that time I stimulated each extremity by pushing on his nailbeds and patient will withdrawal each extremity and he would say ouch and appropriate response without any slurred speech. After about 5 to 10 minutes the symptoms resolved as well and he returned to almost baseline mental status with just mild confusion. The patient's noncontrast head CT revealed no acute findings. His labs revealed no clinically significant changes. Telemetry neurology was consulted and did evaluate the patient through the robot. They agree that there is no obvious changes to suggest stroke at this time. They recommend repeat MRI with and without contrast and admission to the hospital. I contacted our medical service and they feel that as we do not have inpatient neurology and this is third visit for similar event that they would transfer to higher level of care. Therefore [facility] was contacted they do agree to accept the patient to the ER for further evaluation. The patient will need premedicated for his MRI and as his transport is only approximately 2 hours away I feel this could cause derangement to his mental status and alter his exam when he arrives at their facility. Therefore I will hold off on the imaging study at this time. The patient was informed of this transfer and the need to hold the MRI. When this was done he is awake and alert with no slurred speech or weakness or paresthesias. He does agree to transfer at this time Lab Data Attestation: I reviewed the patient's lab results. Labs: Laboratory Results - last 24 hr 01/28/22 01/28/22 01/28/22 05:34 05:34 05:34 WBC 6.3 RBC 6.06 Hgb 15.5 Hct 48.7 MCV 80.4 MCH 25.6 L MCHC 31.8 L RDW Std Deviation 39.5 RDW Coeff of Alexus 13.5 Plt Count 245 MPV 9.7 Immature Gran % (Auto) 0.200 Neut % (Auto) 43.8 L Lymph % (Auto) 43.1 H [place] % (Auto) 9.5 Eos % (Auto) 2.9 Baso % (Auto) 0.5 Absolute Neuts (auto) 2.8 Absolute Lymphs (auto) 2.72 Nucleated RBC % 0 ESR 10 Sodium 141 Potassium 3.8 Chloride 108 H Carbon Dioxide 27.0 Anion Gap 6 BUN 11 Creatinine 0.86 Estim Creat Clear Calc 121.51 Est GFR (MDRD) Af Amer 134 Est GFR (MDRD) Non-Af 111 BUN/Creatinine Ratio 12.8 Glucose 105 Lactic Acid Calcium 8.8 Magnesium 2.3 Total Bilirubin Direct Bilirubin AST ALT Alkaline Phosphatase C-React Prot Ext Range Total Protein Albumin Globulin Ethyl Alcohol Syphilis Total Ab 01/28/22 01/28/22 01/28/22 05:34 05:34 06:10 WBC RBC Hgb Hct MCV MCH MCHC RDW Std Deviation RDW Coeff of Alexus Plt Count MPV Immature Gran % (Auto) Neut % (Auto) Lymph % (Auto) [place] % (Auto) Eos % (Auto) Baso % (Auto) Absolute Neuts (auto) Absolute Lymphs (auto) Nucleated RBC % ESR Sodium Potassium Chloride Carbon Dioxide Anion Gap BUN Creatinine Estim Creat Clear Calc Est GFR (MDRD) Af Amer Est GFR (MDRD) Non-Af BUN/Creatinine Ratio Glucose Lactic Acid Calcium Magnesium Total Bilirubin 0.30 Direct Bilirubin 0.09 AST 16 ALT 27 Alkaline Phosphatase 56 C-React Prot Ext Range < 2.90 Total Protein 7.5 Albumin 3.8 Globulin 3.7 Ethyl Alcohol < 3.0 Syphilis Total Ab Non-reactive 01/28/22 07:46 WBC RBC Hgb Hct MCV MCH MCHC RDW Std Deviation RDW Coeff of Alexus Plt Count MPV Immature Gran % (Auto) Neut % (Auto) Lymph % (Auto) [place] % (Auto) Eos % (Auto) Baso % (Auto) Absolute Neuts (auto) Absolute Lymphs (auto) Nucleated RBC % ESR Sodium Potassium Chloride Carbon Dioxide Anion Gap BUN Creatinine Estim Creat Clear Calc Est GFR (MDRD) Af Amer Est GFR (MDRD) Non-Af BUN/Creatinine Ratio Glucose Lactic Acid 1.0 Calcium Magnesium Total Bilirubin Direct Bilirubin AST ALT Alkaline Phosphatase C-React Prot Ext Range Total Protein Albumin Globulin Ethyl Alcohol Syphilis Total Ab Radiography Diagnostic Testing: Clinical Impression(s) from Imaging Studies Brain CT 01/28/22 06:18 IMPRESSION: Negative Brain CT without contrast. Electronically Signed: Sanju Meade MD at 6:55 EST Reading Location ID and State: [facility] / MD Tel , Service support , Discharge Plan Triage Chief Complaint: Headache ED Provider: Jf Pino Dx/Rx/DC Orders Clinical Impression: Altered mental status, Atypical migraine Prescriptions: No Action NK Primary Care Provider: Care Physician,No Primary Referrals: Care Physician,No Primary [Primary Care Provider] - Disposition Disposition: Acute Care Hospital Discharge Location: [facility]
[2022-01-28] MEDS: 0.9% Normal Saline 1,000 ML 999 ML IV (05:43)
[2022-01-28] MEDS: Metoclopramide 10 MG/2 ML Vial IV (05:43)
[2022-01-28] MEDS: Ketorolac 30 MG/ML Syringe IV (05:43)
[2022-01-28] MEDS: DiphenhydrAMINE 50 MG/ML Syringe IV (05:44)
[2022-01-28 05:52] LABS: Absolute Lymphocyte Count 2.72 X10^3/uL (0.83-4.51); Absolute Neutrophil Count 2.8 X10^3/uL (2.0-7.7); Basophil# 0.03 X10^3/uL; Basophil% 0.5 % (0-1); Eosinophil# 0.18 X10^3/uL; Eosinophils% 2.9 % (0-5); Hematocrit 48.7 % (40-54); Hemoglobin 15.5 g/dL (13.0-16.5); Lymphocyte # 2.72 X10^3/ul (0.83-4.51); Lymphocyte % 43.1 % (19-41); Mean Corp Hgb Conc 31.8 g/dL (32-36); Mean Corpuscular Hgb 25.6 pg (27.0-32.0); Mean Corpuscular Volume 80.4 fL (80-94); Mean Platelet Vol. 9.7 fl (6.2-12.0); Monocyte% 9.5 % (0-10); NRBC Flagged by Analyzer 0 % (0-5); Neutrophil # 2.77 X10^3/uL (2.7-7.7); Neutrophil % 43.8 % (47-70); Platelet Count 245 K/mm3 (150-450); RBC Distribution Width CV 13.5 % (11.6-14.6); RBC Distribution Width SD 39.5 fl (35.1-43.9); Red Blood Count 6.06 M/mm3 (4.6-6.2); White Blood Count 6.3 K/mm3 (4.4-11.0)
--- NOTE | 2022-01-28 06:18 | CT_ITS ---
INDICATION: altered mental status EXAMINATION: CT BRAIN - CT Head or Brain W/O Contrast Injection TECHNIQUE: Multiple axial images were obtained of the head without intravenous contrast. A radiation dose optimization technique was used for this scan. IV Contrast dosage and agent: None. COMPARISON: January 14, 2022 CTA head and neck and MRI brain FINDINGS: BRAIN PARENCHYMA: No intra- or extra-axial hemorrhage. No evidence of acute infarct. No intracranial mass or mass effect. Unremarkable white matter for age. There is preservation of the vasquez/white matter interface. Posterior fossa structures are unremarkable. CSF SPACES: Cerebral volume appropriate for age. No hydrocephalus. Basal cisterns are patent. CALVARIUM, SKULL BASE, PARANASAL SINUSES AND MASTOID AIR CELLS: No acute osseous finding. Paransasal sinuses are clear. Mastoid air cells are clear. ORBITS: Both globes, extraocular muscles, optic nerves and retrobulbar fat appear unremarkable. ASPECTS Score for Acute Strokes: 10 CT/Brain/Head without Contrast IMPRESSION: Negative Brain CT without contrast. Electronically Signed: Sanju Meade MD at 6:55 EST ,
[2022-01-28 06:19] LABS: Anion Gap 6 (5-15); BUN 11 mg/dL (7-18); BUN/Creat Ratio 12.8 RATIO (10-20); Calcium,Total 8.8 mg/dL (8.5-10.1); Chloride 108 mmol/L (98-107); Creatinine, Serum 0.86 mg/dL (0.70-1.30); EST Glomerular Filtration Rate 111 mL/min (>60); Est Glom Filt Rate - Afr Amer 134 mL/min (>60); Estimated Creatinine Clearance 121.51 ml/min; Glucose 105 mg/dL (74-106); Magnesium 2.3 mg/dL (1.6-2.6); Potassium 3.8 mmol/L (3.5-5.1); Sodium Level 141 mmol/L (136-145)
[2022-01-28 06:31] LABS: Alcohol, Blood (Medical)-Serum < 3.0 mg/dL
[2022-01-28 08:04] LABS: AST(SGOT) 16 U/L (15-37); Alanine Aminotransfer ALT/SGPT 27 U/L (16-61); Albumin, Serum 3.8 g/dL (3.2-5.0); Alkaline Phosphatase 56 U/L (45-117); Bilirubin, Direct 0.09 mg/dL (0.00-0.30); CRP < 2.90 mg/L (0.0-3.0); Globulin 3.7 g/dL (2.2-4.2); Protein, Total 7.5 g/dL (6.4-8.2)
[2022-01-28 08:37] LABS: Erythrocyte Sedimentation Rate 10 mm/hr (0-20)
[2022-01-28 08:52] LABS: Syphilis Antibodies Non-reactive
[2022-01-28 09:00] VITALS: BP 129/73; PULSE 73; RESP 20; TEMP 36.8; O2SAT 98
[2022-01-28 09:40] LABS: Bacteria 0 SEEN /hpf (None Seen); Color, Urine Yellow (Yellow); Glucose, Dipstick Normal (Normal); Ketone-Dipstick 50 mg/dl (Negative); Leukocyte Esterase-Dipstick 25 /ul (Negative); Mucous, Urine 0 SEEN /hpf (<or=2+); Nitrite-Dipstick Negative (Negative); Occult Blood-Urine 10 /ul (Negative); Protein-Dipstick 15 mg/dl (Negative); Urine Bilirubin Dipstick Negative (Negative); Urine Clarity Clear (Clear); Urine Urobilinogen Normal (Normal)
[2022-01-28 09:45] LABS: Vista UDS pH Range 7
[2022-01-28 09:49] LABS: Red Blood Cells-Urine 0-5 SEEN /hpf (0-5); Squamous Epithelial Cells - UA 0-5 SEEN /hpf (0-5); White Blood Cells 0-5 SEEN /hpf (0-5)
[2022-01-28 09:52] LABS: Amphetamine Urine VISTA NEGATIVE (<1000 ng/mL); Barbiturate Urine VISTA NEGATIVE (< 200 ng/mL); Benzodiazepine Urine VISTA NEGATIVE (< 200 ng/mL); Cocaine Urine VISTA NEGATIVE (< 300 ng/mL); Ecstacy Urine VISTA NEGATIVE (< 500 ng/mL); Methadone Urine VISTA NEGATIVE (< 300 ng/mL); PCP Urine VISTA NEGATIVE (< 25 ng/mL); THC Urine VISTA NEGATIVE (< 50 ng/mL)
[2022-01-28 10:41] VITALS: BP 129/73; PULSE 73; RESP 18; TEMP 36.4; O2SAT 98
[2022-01-28 11:40] LABS: Chlamydia Trachomatis by PCR Negative (Negative); Neisserai gonorrhoeae by PCR Negative (Negative); Probe Check PASS; Sample Adequacy Control PASS; Specimen Processing Control PASS
== END 2022-01-28 10:40 | disposition short-term general hospital (02) ==
PROVIDERS: Emergency Provider Emergency Medicine; Visit Provider Emergency Medicine
DX: R41.82 Altered mental status, unspecified (principal); G43.909 Migraine, unspecified, not intractable, without status migrainosus; R53.1 Weakness; R47.81 Slurred speech; R20.0 Anesthesia of skin; R05.9 Cough, unspecified; R11.2 Nausea with vomiting, unspecified
CPT/HCPCS: 70450; 80048; 80076; 80307; 81001; 82077; 83605; 83735; 85025; 85652; 86140; 86780; 87491; 87591; 87811; 96361; 96374; 96375; 99283; J7030; A4216

== ENCOUNTER 2022-12-14 22:13 | Emergency (ER) | payer MEDICAID, SELFPAY ==
[2022-12-14 22:14] VITALS: BP 157/97; PULSE 90; RESP 18; TEMP 36.3; O2SAT 99; BMI 40.0
[2022-12-14] MEDS: Naproxen 500 MG Tablet PO (22:43)
--- NOTE | 2022-12-14 22:45 | RAD_ITS ---
INDICATION: injury EXAMINATION/TECHNIQUE: X-RAY - LEFT XR Ankle Min 3 Views 3 VIEWS COMPARISON: None. FINDINGS: Soft tissue swelling. No significant tibiotalar joint space narrowing is appreciated. This patient does have a focal density projecting over the posterior joint space on the lateral view and there is a suggestion of a small ankle effusion. Achilles enthesopathy. There is degenerative spurring at the anterior aspect of the midfoot. No distal tibia or fibular fracture is detected. RAD/Ankle min 3 Views IMPRESSION: Soft tissue swelling. Findings suggesting a joint effusion and possible joint loose body. Electronically Signed: Ricardo Mendes MD at 23:07 EDT ,
--- NOTE | 2022-12-14 23:14 | ED.VIS.LOWEX ---
HPI History of Present Illness Chief Complaint: Lower Extremity Injury Detail of Chief Complaint: Left ankle injury Informant: patient Onset/Context/Timing Onset: Today Narrative Narrative: Patient presents with left ankle pain and swelling after rolling his ankle earlier today. He states he first sprained his ankle back in high school and has had several recurrent left ankle sprains. Most recent sprain was 3 weeks ago. He states he felt like he was back up to baseline but then rolled his ankle again today. He has never had surgery or injections to his ankle. PFSH PFSH Medical History no medical history no medical history Home Medications NK 11/06/21 [History Last Taken Unknown] Allergy/AdvReac Type Severity Reaction Status Date / Time No Known Allergies Allergy Verified 12/14/22 22:15 Social History Smoking Status: Never smoker substance use type: does not use ROS ROS ED Constitutional Constitutional ED: Denies chills or fever(s) Eyes Eyes: Denies change in vision or discharge from eye(s) ENT ENT ED: Denies discharge from eye(s), rhinorrhea or sore throat Cardiovascular Cardiovascular: Denies chest pain Respiratory/Chest Respiratory/Chest: Denies cough or dyspnea Gastrointestinal Gastrointestinal: Denies abdominal pain, nausea or vomiting Musculoskeletal Musculoskeletal: Reports extremity pain; Denies back pain Integumentary Denies Abrasions or rash Neurologic Neurologic: Denies headache(s), paresthesias or weakness Psychiatric Psychiatric: Denies anxiety or depression Allergic/Immunologic Allergic/Immunologic ED: Denies lip swelling or urticaria EXAM Physical Exam Const Vital Signs: 12/14/22 22:14 Temperature 97.3 F L Temperature Source Temporal Pulse Rate 90 Respiratory Rate 18 Blood Pressure 157/97 H Blood Pressure Mean 117 Pulse Ox 99 Oxygen Delivery Method Room Air Positive well nourished and well developed General Appearance ED: well developed HEENT Reports normocephalic and head/scalp atraumatic Eyes PERRL and EOMs intact bilaterally Neck supple Chest Wall inspection of chest normal and palpation of chest normal Resp normal respiratory effort and clear to auscultation bilaterally Cardio regular rate and regular rhythm GI non-tender Palpation: soft Extremity Extremity Narrative: Tenderness elevation and edema over the distal aspect of the left lateral malleolus. No lacerations or abrasions. Good distal pulses. No tenderness over the foot itself. No tenderness at the knee. Neuro oriented x3 and no sensory deficits noted Sensorium / Orientation: alert Motor Exam: strength 5/5 throughout Psych mental status grossly normal Skin no rashes or lesions noted MDM MDM MDM Narrative Medical decision making narrative: Patient given ice pack along with Naprosyn for pain. Left ankle x-rays obtained to evaluate for fracture. Radiography Diagnostic Testing: Clinical Impression(s) from Imaging Studies Ankle X-Ray 12/14/22 22:45 IMPRESSION: Soft tissue swelling. Findings suggesting a joint effusion and possible joint loose body. Electronically Signed: Ricardo Mendes MD at 23:07 EDT , Treatment and Re-Evaluation Narrative: Left ankle x-ray per my interpretation reveals no evidence of fracture. Radiology interpretation is reviewed. They do not see definitive fracture. They do note soft tissue swelling as well as a joint effusion. There is a possible joint loose body also noted. Test results are discussed with the patient. He will be given an air stirrup splint. He will be referred to podiatry for follow-up. He is comfortable this plan. Discharge Plan Triage Chief Complaint: Lower Extremity Injury ED Provider: Jacqui Patel Dx/Rx/DC Orders Clinical Impression: Left ankle sprain Instructions: ED Ankle Sprain (Adult) Prescriptions: No Action NK Primary Care Provider: Care Physician,No Primary Referrals: Jarek Hoffman DPM [Med Staff - Active Staff] - 5-7 Days Care Physician,No Primary [Primary Care Provider] -
== END 2022-12-14 23:38 | disposition home or self-care (01) ==
PROVIDERS: Emergency Provider Emergency Medicine; Visit Provider Emergency Medicine
DX: S93.402A Sprain of unspecified ligament of left ankle, initial encounter (principal); X58.XXXA Exposure to other specified factors, initial encounter
CPT/HCPCS: 73610; 99283

== ENCOUNTER → 2024-07-21 | Outpatient (CLI) | payer MEDICAID, SELFPAY ==
--- NOTE | 2024-07-21 08:06 | MRI_ITS ---
PROCEDURE: LOWER EXT JOINT ONLY (ROUTINE) 07/21/2024 REASON FOR EXAM: LT ANKLE INSTABILTY, MULTIPLE SPRAINS TECHNIQUE: MRI of the left lower Extremity. Multiplanar and multisequence images were obtained without IV contrast administration. COMPARISON: COMPARISON : 12/14/2022 radiographs FINDINGS: Mild distal Achilles tendinopathy. Posterior flexor tendons are intact. Mild peroneus longus and brevis tenosynovitis without tear. Anterior extensor tendons are intact. Anterior and posterior syndesmotic ligaments are intact. Complete tear of the anterior talofibular ligament. Posterior talofibular and calcaneofibular ligaments are intact. Partial tear of the deep deltoid ligament. Superficial deltoid ligament complex is intact. Plantar fascia is intact. Sinus tarsi fat is intact. Osteochondral lesion along the lateral talar convexity measuring 10 x 7 x 9 mm comprised of subcortical cysts, articular surface irregularity/flattening and a overlying chondral defect measuring 6 x 4 mm. Moderate surrounding bone marrow edema throughout the lateral talar dome. Low-level bone marrow edema also noted in the lateral malleolus. Negative for fracture. Small tibiotalar joint effusion with synovitis. Superficial soft tissues are within normal limits. MRI/Lower Ext Joint Only (Routine) IMPRESSION: 1. Osteochondral lesion along the lateral talar convexity as above with surroun ding bone marrow edema. Associated small tibiotalar joint effusion with synovitis. 2. Complete tear of the anterior talofibular ligament. 3. Peroneus longus and brevis tendinopathy. 4. Mild distal Achilles tendinopathy. 5. Partial tear of the deep deltoid ligament, likely chronic. Reading [facility]
== END | disposition home or self-care (01) ==
LOC: OPMRI 07:49
PROVIDERS: Referring Provider Podiatrist Foot & Ankle Surgery; Visit Provider Podiatrist Foot & Ankle Surgery
DX: M25.372 Other instability, left ankle (principal)
CPT/HCPCS: 73721